=== PATIENT | male | born 1935 | race Caucasian/White ===

== ENCOUNTER 2020-01-08 13:32 | Inpatient (IN) | payer MEDICARE, BC ==
[2020-01-08] VITALS (216 sets, daily range): BP systolic 136–142; BP diastolic 80–82; PULSE 69–88; TEMP 97.7–97.8; O2SAT 88–100
[~2020-01-08] VITALS: Ht 180.3 cm; Wt 103.3 kg
[~2020-01-08 13:32] MED LIST: ASPIRIN E.C. 8181 MG PO; FOSAMAX 70MG TA70 MG PO; LASIX 20MG TABL20 MG PO; LIPITOR 80MG80 MG PO; NORVASC 5MG5 MG/TAB PO; PLAVIX 75MG TAB75 MG PO; VASOTEC20 MG PO
[2020-01-08 14:24] LABS: BASO % 0.3 % (0.0-2.0); EOS # 0.1 (0.0-0.7); EOS % 1.6 % (0-4.0); GRAN # 4.4 (1.4-6.5); GRAN % 64.9 % (42.2-75.2); HEMATOCRIT 48.6 % (42.0-52.0); HEMOGLOBIN 15.5 g/dl (13.5-18.0); LYMPH # 1.5 (1.2-3.4); LYMPH % 22.5 % (20.0-51.0); MEAN CELL VOLUME 98 fl (80.0-100.0); MEAN CORPUSCULAR HEMOGLOBIN 31 pg (27.0-31.0); MEAN CORPUSCULAR HGB CONC 32 g/dl (33.0-37.0); MEAN PLATELET VOLUME 9.1 fl (7.4-10.4); MONO # 0.7 (0.1-0.6); MONO % 10.4 % (1.7-9.3); PLATELET COUNT 181 K/mm3 (130-400); RED BLOOD COUNT 4.94 M/mm3 (4.20-5.60)
[2020-01-08 14:29] LABS: INR 1.2 (0.8-3.0); PROTHROMBIN TIME 13.8 SECONDS (9.7-12.8)
[2020-01-08 14:34] LABS: ALBUMIN 4.4 gm/dL (3.5-5.0); BILIRUBIN,TOTAL 0.8 mg/dL (0.0-1.0); CALCIUM 9.3 mg/dL (8.4-10.2); CREATININE, serum 0.84 (0.66-1.25); POTASSIUM 3.8 mmol/L (3.4-5.0); TOTAL PROTEIN 7.5 gm/dL (6.4-8.2)
[2020-01-08 14:42] LABS: ARTERIAL BLD GAS O2 SATURATION 94.1 % (92-100); ARTERIAL BLD GAS TCO2 CT 36.2; ARTERIAL BLOOD GAS BASE EXCESS 6.6 (-2-2); ARTERIAL BLOOD GAS HCO3 34.3 meq/L (22-26); ARTERIAL BLOOD GAS PCO2 61.5 mmHg (35-45); ARTERIAL BLOOD GAS PO2 69.2 mmHg (80-100); ARTERIAL BLOOD GAS pH 7.36 (7.35-7.45)
[2020-01-08 14:46] LABS: TROPONIN-I 0.013 ng/mL (0.000-0.035)
[2020-01-08 17:31] LABS: PARTIAL THROMBOPLASTIN TIME 34.2 SECONDS (26.0-37.0)
--- NOTE | 2020-01-08 18:51 | NUR ---
Admission assessment completed, alert/oriented, vital signs stable, denies pain or discomfort, lungs CTA/ diminished, Lasix given and wore Bi-pap in ER, reports breathing is much easier sence being admitted, heart irregular/ dx of new onset A.fib and has spoked with Cardiology about consultation and Heparin gtt initiated, distal pulses are palapble, patient having good urine output with lasix dosing, wears home o2 at night/ currently on 3L. and will have bipap at [facility] as tolerated, oriented to room, denies other needs at this time, will continue to monitor
--- NOTE | 2020-01-08 19:20 | NUR ---
Received report from SUSSY Zuniga.
--- NOTE | 2020-01-08 20:00 | NUR ---
Patient resting quietly in bed. Family present at the bedside. Patient denies any pain or discomfort. Vitals within normal limits. [place] box provided per patient request. Will continue to monitor.
[2020-01-09] VITALS (313 sets, daily range): BP systolic 112–143; BP diastolic 61–78; PULSE 56–77; TEMP 97.5–98.6; O2SAT 75–100
[2020-01-09 03:17] LABS: PARTIAL THROMBOPLASTIN TIME 74.8 SECONDS (26.0-37.0)
[2020-01-09 05:32] LABS: BASO % 0.5 % (0.0-2.0); EOS # 0.2 (0.0-0.7); EOS % 3.6 % (0-4.0); GRAN # 3.6 (1.4-6.5); GRAN % 64.8 % (42.2-75.2); HEMATOCRIT 44.8 % (42.0-52.0); HEMOGLOBIN 14.3 g/dl (13.5-18.0); LYMPH # 1.1 (1.2-3.4); LYMPH % 19.9 % (20.0-51.0); MEAN CELL VOLUME 98 fl (80.0-100.0); MEAN CORPUSCULAR HEMOGLOBIN 31 pg (27.0-31.0); MEAN CORPUSCULAR HGB CONC 32 g/dl (33.0-37.0); MEAN PLATELET VOLUME 9.8 fl (7.4-10.4); MONO # 0.6 (0.1-0.6); PLATELET COUNT 165 K/mm3 (130-400); RED BLOOD COUNT 4.56 M/mm3 (4.20-5.60)
[2020-01-09 05:38] LABS: CALCIUM 8.5 mg/dL (8.4-10.2); CHOLESTEROL RISK RATIO 3.9; CREATININE, serum 0.77 (0.66-1.25); MAGNESIUM 2.1 mg/dL (1.6-2.3); POTASSIUM 3.1 mmol/L (3.4-5.0)
--- NOTE | 2020-01-09 07:28 | NUR ---
Report given to SUSSY Black.
--- NOTE | 2020-01-09 07:28 | NUR ---
Report received from [place] [facility] and care resumed.
--- NOTE | 2020-01-09 09:29 | NUR ---
Dr Thomas in to see pt at this time.
--- NOTE | 2020-01-09 10:15 | NUR ---
Patient was indisposed with a doctor.
--- NOTE | 2020-01-09 12:05 | NUR ---
Pt taken by wheelchair to room 315. Update given to RN.
--- NOTE | 2020-01-09 13:15 | NUR ---
Patient is alert and oriented. Hard of hearing. Breath sound is diminished. patient denies any pain at this time. family is visiting at the bedside.
--- NOTE | 2020-01-09 19:28 | NUR ---
patient is resting in bed at this time voided. patient had a total of 1590mL output on this shift after been transferred from [facility] to medical floor.
[2020-01-10 00:30] VITALS: BP 117/61; PULSE 79; TEMP 98
[2020-01-10 04:04] VITALS: BP 123/61; PULSE 79; TEMP 97.7
--- NOTE | 2020-01-10 06:40 | NUR ---
Report given to SUSSY Shields. Pt had uneventful night. No concerns or problems. Upon entry to pt's room, pt's NC was hanging away from his nose. Replaced o2. No further concerns at this time.
[2020-01-10 07:49] LABS: HEMATOCRIT 48.6 % (42.0-52.0); HEMOGLOBIN 15.8 g/dl (13.5-18.0); MEAN CELL VOLUME 96 fl (80.0-100.0); MEAN CORPUSCULAR HEMOGLOBIN 31 pg (27.0-31.0); MEAN CORPUSCULAR HGB CONC 33 g/dl (33.0-37.0); MEAN PLATELET VOLUME 9.5 fl (7.4-10.4); PLATELET COUNT 182 K/mm3 (130-400); RED BLOOD COUNT 5.05 M/mm3 (4.20-5.60); REDCELL DISTRIBUTION WIDTH-CV 13.9 % (11.5-14.5)
[2020-01-10 07:53] LABS: ANION GAP 7 mmol/L (7-16); BLOOD UREA NITROGEN 14 mg/dL (9-20); CALCIUM 8.6 mg/dL (8.4-10.2); CARBON DIOXIDE 38 mmol/L (22-30); CHLORIDE 95 mmol/L (98-107); CREATININE, serum 0.72 (0.66-1.25); GLUCOSE 119 mg/dL (74-106); POTASSIUM 3.5 mmol/L (3.4-5.0); SODIUM 140 mmol/L (137-145)
[2020-01-10 08:07] LABS: MAGNESIUM 2.1 mg/dL (1.6-2.3); TROPONIN-I < 0.012 ng/mL (0.000-0.035)
[2020-01-10 08:32] VITALS: BP 120/69; PULSE 89; TEMP 99.5
--- NOTE | 2020-01-10 09:26 | NUR ---
Pt assessment completed and charted. Morning medications administered per JAN. pt sitting in recliner upon entry. Pt denies any pain, SOB, N/V/D, chest pain, dizziness at this time. Pt on 2L NC. Breathing is even and unlabored. Pt has INT RFA, flushes well w/o complications. BLE 1+ edema noted. Pt requesting shower today, no other concerns expressed. Verbal order from Dr. Bay, BID ear drops. Consent for heart cath for 3/2 on front of chart. All questions answered.
[2020-01-10 11:43] VITALS: BP 116/73; PULSE 91; TEMP 98.1
--- NOTE | 2020-01-10 14:03 | NUR ---
SPO2 85% WITH CANNULA NOT FULLY IN NARES. INCREASED TO 3 LPM NC 90%
[2020-01-10 15:40] VITALS: BP 112/50; PULSE 74; TEMP 99.8
--- NOTE | 2020-01-10 17:24 | NUR ---
Pt having concerns about STIVEN/Cardioversion scheduled for tomorrow. Discussed POC w/ pt, provided verbal and written education, all questions answered. pt appears more calm with procedures. Encouraged to ask more questions if any should arise. VS verified, noticed, 87% O2 reading. RT mentioned earlier pt had been satting in mid 80s, NC not fully in nares. Pt has been having difficulty keeping NC in. 1600 vitals, recorded as 87%. Pt rechecked, NC in nares, pt satting at 92% on 3L.
[2020-01-10 22:37] VITALS: BP 113/58; PULSE 85; TEMP 98
[2020-01-11] VITALS (12 sets, daily range): BP systolic 96–117; BP diastolic 58–70; PULSE 77–94; TEMP 97.7–99.2
--- NOTE | 2020-01-11 09:03 | NUR ---
Pt back from STIVEN/Cardioversion. Pt on 5L NC satting at 94% at this time. BPs are soft. VS monitoring in progress. Pt is A&O, a little groggy. Mamadou student providing care for pt today.
--- NOTE | 2020-01-11 09:43 | NUR ---
PT VSS, BP climbing back up, family at bedside. Pt A&O. student administered medications per JAN. Pt denies complaints at this time.
[2020-01-11 09:53] LABS: BASO % 0.4 % (0.0-2.0); EOS # 0.1 (0.0-0.7); EOS % 1.7 % (0-4.0); GRAN # 5.7 (1.4-6.5); GRAN % 75.9 % (42.2-75.2); HEMATOCRIT 48.2 % (42.0-52.0); HEMOGLOBIN 15.5 g/dl (13.5-18.0); LYMPH # 0.8 (1.2-3.4); LYMPH % 10.4 % (20.0-51.0); MEAN CELL VOLUME 98 fl (80.0-100.0); MEAN CORPUSCULAR HEMOGLOBIN 32 pg (27.0-31.0); MEAN CORPUSCULAR HGB CONC 32 g/dl (33.0-37.0); MEAN PLATELET VOLUME 9.9 fl (7.4-10.4); MONO # 0.8 (0.1-0.6); MONO % 11.2 % (1.7-9.3); PLATELET COUNT 164 K/mm3 (130-400); RED BLOOD COUNT 4.92 M/mm3 (4.20-5.60); REDCELL DISTRIBUTION WIDTH-CV 14.4 % (11.5-14.5)
[2020-01-11 10:03] LABS: CALCIUM 8.5 mg/dL (8.4-10.2); CREATININE, serum 0.86 (0.66-1.25); POTASSIUM 3.8 mmol/L (3.4-5.0)
--- NOTE | 2020-01-11 15:42 | NUR ---
Patient tolerated STIVEN and cardioversion well and returned to floor.
--- NOTE | 2020-01-11 15:43 | NUR ---
Patient resting in bed/chair and visiting with family.
--- NOTE | 2020-01-11 17:00 | NUR ---
Field Artillery Officer met with patient, patient's Namita (ph#[phone]), and patient's daughter Trevor (ph#[phone]) to discuss discharge planning. Patient lives in [place] with his and sees Dr. Ant Ordaz for primary care. Patient obtains medications from [facility] in [place] with no difficulties. Patient uses a cane as needed and wears oxygen at night supplied by [facility]. SW discussed therapy recommendation for Home Health and presented Medicare.gov list of HH agencies that serve [place]. Patient would like time to review options. SW to follow up on patient choice for HH.
--- NOTE | 2020-01-11 18:18 | NUR ---
Uneventful day for pt after STIVEN/Cardioversion. Pt started on Sotalol, no issues. Extension tubing provided for NC. Pt sitting in recliner awaiting dinner.
--- NOTE | 2020-01-11 22:15 | NUR ---
RECIEVED REPORT FROM JEWELRY CASTING MODEL MAKER. PATIENT WAS SITTING IN HIS CHAIR EATING HIS DINNER. DENYING ANY NEEDS AT THAT TIME. PATIENT USES THE URINAL AT HIS BEDSIDE AND CALLS IF HE NEEDS ANYTHING. HE IS POST STIVEN/CARDIOVERSION TODAY. PATIENT WAS STARTED ON SOTALOL TODAY
[2020-01-12 04:28] VITALS: BP 103/56; PULSE 67; TEMP 98.1
--- NOTE | 2020-01-12 05:22 | NUR ---
PATIENT HAS SLEPT ALL NIGHT LONG WITH NO ISSUES NOTED. THIS WILL BE SOTALOL DAY 2 FOR HIM. WILL UPDATE DAY SHIFT UPON THEIR ARRIVAL OF HIS PLAN
[2020-01-12 05:59] LABS: BASO % 0.5 % (0.0-2.0); EOS # 0.2 (0.0-0.7); EOS % 2.7 % (0-4.0); GRAN # 4.1 (1.4-6.5); GRAN % 64.3 % (42.2-75.2); HEMATOCRIT 46.5 % (42.0-52.0); HEMOGLOBIN 14.7 g/dl (13.5-18.0); LYMPH % 16.3 % (20.0-51.0); MEAN CELL VOLUME 99 fl (80.0-100.0); MEAN CORPUSCULAR HEMOGLOBIN 31 pg (27.0-31.0); MEAN CORPUSCULAR HGB CONC 32 g/dl (33.0-37.0); MEAN PLATELET VOLUME 9.6 fl (7.4-10.4); MONO % 15.9 % (1.7-9.3); PLATELET COUNT 158 K/mm3 (130-400); RED BLOOD COUNT 4.69 M/mm3 (4.20-5.60); REDCELL DISTRIBUTION WIDTH-CV 14.3 % (11.5-14.5)
[2020-01-12 07:02] LABS: CALCIUM 8.3 mg/dL (8.4-10.2); CREATININE, serum 0.9 (0.66-1.25); MAGNESIUM 2.3 mg/dL (1.6-2.3); POTASSIUM 4.1 mmol/L (3.4-5.0)
[2020-01-12 08:08] VITALS: BP 103/55; PULSE 64; TEMP 98
--- NOTE | 2020-01-12 11:01 | NUR ---
Pt assessment completed and charted. Medications administered per MAR. Pt sitting in recliner with at bedside. Pt A&O, SBA. Pt denies pain, dizziness, SOB, N/V/D, chest pain. Day 2 sotalol, first dose given, dose changed to 60mg for remaining doses. Pt has INT RFA IV that flushes w/o complications. Pt on 2L NC, breathing is even and unlabored, satting above 90%. No concerns expressed by patient at this time.
[2020-01-12 12:30] VITALS: BP 102/62; PULSE 65; TEMP 98
--- NOTE | 2020-01-12 13:32 | NUR ---
Tele called in regards to pt AV block "getting longer". Pts sotalol dose was decreased today from 80MG to 60MG due to EKG and long AVB. SUSSY Quinn w/ cardiology was paged and made aware of concern. She stated she would look at tele and consult [facility] for further recommendations.
--- NOTE | 2020-01-12 13:52 | NUR ---
SUSSY Quinn w/ cardio called, tele reviewed and discussed with Dr. Garrett. Sotalol dose will be decreased to 40MG now for evening dose. Continuing to monitor otherwise.
--- NOTE | 2020-01-12 14:09 | NUR ---
Telephone Exchange Operator met with patient and patient's to follow up on Home Health Choice. Patient reviewed list again and selected [facility]. Patient states if [facility] cannot meet his needs, ERIC can send a referral to Mike. ERIC contacted Garret at [facility] and faxed referral. SW to continue to follow.
[2020-01-12 15:55] VITALS: BP 108/65; PULSE 65; TEMP 98.2
[2020-01-12 16:48] VITALS: BP 106/61; PULSE 60; TEMP 98.5
--- NOTE | 2020-01-12 16:51 | NUR ---
[place] from tele called about tele strips available for pt, will get to put on chart. Cardiology was made aware earlier and had looked at tele, monitoring.
[2020-01-12 20:39] VITALS: BP 93/51; PULSE 61; TEMP 98.6
[2020-01-13 00:03] VITALS: BP 104/51; PULSE 69; TEMP 98.5
--- NOTE | 2020-01-13 01:09 | NUR ---
Patient doing well tonight. alert and oriented. took scheduled medications without issue, night dose of sotalol given, QTC 484. denies pain. not wearing bipap to sleep, patient teaching done, continues to refuse. no further needs at this time. will continue to monitor.
[2020-01-13 05:27] VITALS: BP 97/49; PULSE 65; TEMP 97.9
[2020-01-13 07:02] LABS: BASO % 0.5 % (0.0-2.0); EOS # 0.2 (0.0-0.7); EOS % 2.9 % (0-4.0); GRAN # 3.8 (1.4-6.5); GRAN % 61.8 % (42.2-75.2); HEMATOCRIT 46.2 % (42.0-52.0); HEMOGLOBIN 14.6 g/dl (13.5-18.0); LYMPH # 1.2 (1.2-3.4); LYMPH % 19.4 % (20.0-51.0); MEAN CELL VOLUME 99 fl (80.0-100.0); MEAN CORPUSCULAR HEMOGLOBIN 31 pg (27.0-31.0); MEAN CORPUSCULAR HGB CONC 32 g/dl (33.0-37.0); MEAN PLATELET VOLUME 10.1 fl (7.4-10.4); MONO # 0.9 (0.1-0.6); MONO % 15.2 % (1.7-9.3); PLATELET COUNT 156 K/mm3 (130-400); RED BLOOD COUNT 4.65 M/mm3 (4.20-5.60); REDCELL DISTRIBUTION WIDTH-CV 13.9 % (11.5-14.5)
[2020-01-13 07:10] LABS: CALCIUM 8.3 mg/dL (8.4-10.2); CREATININE, serum 0.82 (0.66-1.25); MAGNESIUM 2.2 mg/dL (1.6-2.3); POTASSIUM 3.8 mmol/L (3.4-5.0)
--- NOTE | 2020-01-13 07:30 | NUR ---
Assessment complete. Pt resting in bed, A&O x 3. Breath sounds CTAB. O2 2.5 L/min via NC. BS active x 4. Pt denies pain at this time. Saline lock IV to right forearm without s/s of complications. No further needs reported. Call light in reach.
[2020-01-13 08:17] VITALS: BP 109/56; PULSE 73; TEMP 98.3
[2020-01-13 12:16] VITALS: BP 117/69; PULSE 73; TEMP 97.8
[2020-01-13] MEDS ORDERED: INCRUSE EL62.5 MCG/A IH (14:58)
[2020-01-13] MEDS ORDERED: ELIQUIS 5MG PO (15:00)
[2020-01-13] MEDS ORDERED: PROAIR HFA0.09 MG/AC IH (15:01)
[2020-01-13] MEDS ORDERED: BETAPACE 80MG80 MG PO (15:02)
--- NOTE | 2020-01-13 16:30 | NUR ---
Discharge instructions reviewed with pt regarding new/changes to medications, follow-up appointments, and wound care. Questions invited and answered. Pt verbalizes understanding, discharged home, escorted out of facility via WC accompanied by LATHE MECHANIC and pt's .
--- NOTE | 2020-01-13 16:49 | NUR ---
Drum Drier Operator attended clinical rounds with the team and patient to discharge home today with Home Health. Hospitalist ordered exercise oximetry and advised patient he will likely need oxygen during the day, not just at night. After rounds, ERIC spoke with RT who advised patient qualifies for home oxygen. ERIC met with patient who reports he believes he obtains his night oxygen from [facility]. ERIC contacted [facility] and confirmed they supply patient's oxygen. ERIC faxed facesheet, H&P, progress note, RT assessment and order for oxygen to [facility] and confirmed they received fax. [facility] advised they cannot deliver tank to patient's room this afternoon. ERIC spoke with patient's son, Marv who advised he will picker / packer a tank from [facility] and bring it to patient's room. ERIC provided this update to patient and patient's Namita. ERIC presented and explained IM form to patient who verbalized understanding then provided signature. ERIC placed form on chart then provided copy to patient. Patient in agreeance to discharge home with home health and home oxygen. Patient denies any additional needs or questions at this time. ERIC contacted Garret at [facility] and faxed discharge orders.
== END 2020-01-13 16:45 | disposition home or self-care (01) | DRG 308 ==
LOC: COL.ER 13:32 → ICU 15:09 → MEDICAL 01-09 12:00
PROVIDERS: Family Medicine; Physician Assistant; Student in an Organized Health Care Education/Training Program; ADMIT Internal Medicine
PROC: 5A09557 Assistance with Respiratory Ventilation, Greater than 96 Consecutive Hours, Continuous Positive Airway Pressure (ICD-10-PCS; 2020-01-08)
PROC: B24BZZ4 Ultrasonography of Heart with Aorta, Transesophageal (ICD-10-PCS; principal; 2020-01-11)
PROC: 5A2204Z Restoration of Cardiac Rhythm, Single (ICD-10-PCS; 2020-01-11)
DX: I48.0 Paroxysmal atrial fibrillation (principal); J96.22 Acute and chronic respiratory failure with hypercapnia; J96.21 Acute and chronic respiratory failure with hypoxia; I50.33 Acute on chronic diastolic (congestive) heart failure; I11.0 Hypertensive heart disease with heart failure; M81.0 Age-related osteoporosis without current pathological fracture; N40.0 Benign prostatic hyperplasia without lower urinary tract symptoms; G47.33 Obstructive sleep apnea (adult) (pediatric); I44.0 Atrioventricular block, first degree; E78.5 Hyperlipidemia, unspecified; I25.10 Atherosclerotic heart disease of native coronary artery without angina pectoris; J44.9 Chronic obstructive pulmonary disease, unspecified; Z79.82 Long term (current) use of aspirin; Z87.891 Personal history of nicotine dependence; Z91.19 Patient's noncompliance with other medical treatment and regimen
CPT/HCPCS: 99223-AI; 99232-AI; 99233-AI; 99239; J1644; J1940; J2704; J7030